=== PATIENT | female | born 1960 | race Caucasian/White ===

== ENCOUNTER 2024-05-01 08:32 | Emergency (ER) | payer OTHER ==
[2024-05-01 08:44] VITALS: BP 152/90; PULSE 102; RESP 18; TEMP 98.4; BMI 29.0
[2024-05-01 09:42] LABS: BASO % 0.9 % (0-2.0); EOS % 1.6 % (0-4.5); HEMATOCRIT 41.5 % (32.4-45.2); HEMOGLOBIN 14.6 GM/dL (10.7-15.3); LYMPH % 19.4 % (8-40); MCH 33.6 pg (25.7-33.7); MCHC 35.2 g/dl (32.0-36.0); MEAN CELL VOLUME 95.5 fl (80-96); MEAN PLT VOLUME 6.6 fl (7.5-11.1); MONO % 8.6 % (3.8-10.2); NEUT % 69.5 % (42.8-82.8); PLATELET COUNT 457 10^3/uL (134-434); RBC 4.35 M/mm3 (3.60-5.2); RDW 14.2 % (11.6-15.6); WHITE BLOOD COUNT 6.6 K/mm3 (4.0-10.0)
[2024-05-01 09:55] LABS: POTASSIUM 3.4 mmol/L (3.5-5.1)
[2024-05-01 09:56] LABS: CALCIUM 9.4 mg/dL (8.5-10.1)
[2024-05-01 09:57] LABS: ALBUMIN 3.6 g/dl (3.4-5.0); BLOOD UREA NITROGEN 4.4 mg/dL (7-18)
[2024-05-01 10:00] LABS: CREATININE 0.6 mg/dL (0.55-1.3)
[2024-05-01 10:01] LABS: BILIRUBIN,TOTAL 0.7 mg/dL (0.2-1); TOT PROT 7.7 g/dl (6.4-8.2)
[2024-05-01] MEDS ORDERED: MAG HYDROX/AL HYDROX/SIMETH 30 ML UNIT-DOSE CUP ONE (10:02)
[2024-05-01] MEDS ORDERED: FAMOTIDINE 20 MG TABLET ONE (10:02)
[2024-05-01] MEDS ORDERED: ACETAMINOPHEN 325 MG TABLET (FP) ONE (10:02)
[2024-05-01] MEDS: FAMOTIDINE 20 MG TABLET PO ONE (10:06)
[2024-05-01] MEDS: ACETAMINOPHEN 325 MG TABLET (FP) PO ONE (10:06)
[2024-05-01] MEDS: MAG HYDROX/AL HYDROX/SIMETH -MYLANTA- ORAL SUSPENSION PO ONE (10:07)
== END 2024-05-01 12:08 | disposition home or self-care (01) ==
LOC: JER 08:32
DX: R07.89 Other chest pain (principal)
CPT/HCPCS: 36415; 71046-TC-FY; 80053; 84484; 85025; 93005; 93010; 99285-25